=== PATIENT | female | born 1955 | race American Indian/Alaskan Native ===

== ENCOUNTER 2017-10-31 07:11 | Day surgery (SDC) | payer BC, OTHER ==
[~2017-10-31] VITALS: Ht 157.5 cm; Wt 87.5 kg
[~2017-10-31 07:11] MED LIST: ASPIR-LOW81 MG PO; CALCIUM 600 +1 EAC9 PO; FLECTOR1 EACH; FLOVENT DISKUS50 MCG INH; FORMOTEROL FUMAR MISC; GLIPIZIDE10 MG PO; ICY HOT PAIN70.8 GM TOP; JANUMET 50-1,01 EACH PO; LANTUS SOL100 UNIT/1; LANTUS SOL100 UNIT/1 SQ; LIPITOR10 MG PO; LISINOPRIL20 MG PO; MULTI VITAMIN1 EACH; NORCO 10-325 T1 EACH PO; OMEGA 3 1,0001 EACH; PROAIR RESPICL90 MCG IH; SIMVASTATIN20 MG
--- NOTE | 2017-10-31 08:49 | NUR ---
10/31/17 0849 Fátima Freire 0839 RESP EVEN AND UNLABORED, PT ASLEEP. 0842 PT WOKE UP, REORIENTED TO PACU. 0849 PT PASSING GAS/AIR.
--- NOTE | 2017-10-31 10:35 | NUR ---
PT VERY FRIENDLY, ALERT AND ORIENTED. ROUTINE SCOPE, SEEMED INFORMED AND DEALT WITH PREP DAY APPROPRIATELY. PT REQUESTED PRAYER, WILL FOLLOW NEEDED
--- NOTE | 2017-10-31 10:58 | OR ---
[facility] [address], [place] [address] Signed DATE OF OPERATION: 10/31/2017 SURGEON: Christine Sanchez MD PREOPERATIVE DIAGNOSIS: Screening. POSTOPERATIVE DIAGNOSIS: Unremarkable colonoscopy. PROCEDURE: Colonoscopy without biopsy. ESTIMATED BLOOD LOSS: None. INDICATIONS: Lavonne is a 62-year-old female, asked to see me for a followup screening colonoscopy. She had a negative colonoscopy back at age 52, while living in [place]. I have helped her whole family with colonoscopy, so they are familiar with the whole process. They are familiar with our bowel prep. She told me she has no lower GI complaints. There is no family history of colon cancer or polyps. She also understands the need for IV conscious sedation. She expressed understanding and wished to proceed. PROCEDURE NOTE: Lavonne was taken into our endoscopy suite and placed in the left lateral decubitus position. She was given IV sedation with 5 mg of Versed and 150 mcg of fentanyl. A digital rectal exam was performed and this was unremarkable. The adult colonoscope was introduced and advanced all around into the cecum under direct visualization of camera without difficulty. Her prep was quite good. The scope was then slowly withdrawn. We saw no pathology throughout the entire colon or rectum. Upon retroflexion of the scope, there was no additional pathology noted above the anal canal. After this, the gas was suctioned out and the colonoscope removed. Lavonne tolerated the procedure quite well. RECOMMENDATIONS: Lavonne can follow up in 10 years for repeat colonoscopy. Electronically Signed By: CHRISTINE SANCHEZ MD 10/31/17 1058 PATIENT NAME: LAVONNE SRIVASTAVA OPERATIVE REPORT DATE OF : 59 PHYSICIAN: CHRISTINE SANCHEZ MD REPORT #: [id number] REPORT IS CONFIDENTIAL AND NOT TO BE RELEASED WITHOUT AUTHORIZATION [address] [place], [place] [address] Signed Christine Sanchez MD ALB/MODL /[id number] cc: REJI Paul MD Electronically Signed By: CHRISTINE SANCHEZ MD 10/31/17 1058 PATIENT NAME: LAVONNE SRIVASTAVA OPERATIVE REPORT DATE OF : 59 PHYSICIAN: CHRISTINE SANCHEZ MD REPORT #: [id number] REPORT IS CONFIDENTIAL AND NOT TO BE RELEASED WITHOUT AUTHORIZATION
== END 2017-10-31 09:20 | disposition home or self-care (01) ==
LOC: DS 07:11 → OPS 07:11 → DS 08:15 → OPS 09:20
PROVIDERS: Colon & Rectal Surgery
PROC: 0DJD8ZZ Inspection of Lower Intestinal Tract, Via Natural or Artificial Opening Endoscopic (ICD-10-PCS; principal; 2017-10-31 08:15)
DX: Z12.11 Encounter for screening for malignant neoplasm of colon (principal); I10 Essential (primary) hypertension; J45.909 Unspecified asthma, uncomplicated; E78.5 Hyperlipidemia, unspecified; E55.9 Vitamin D deficiency, unspecified; E66.9 Obesity, unspecified; D69.6 Thrombocytopenia, unspecified; Z98.890 Other specified postprocedural states; Z90.49 Acquired absence of other specified parts of digestive tract; Z79.899 Other long term (current) drug therapy; Z79.82 Long term (current) use of aspirin; Z79.84 Long term (current) use of oral hypoglycemic drugs; Z68.35 Body mass index [BMI] 35.0-35.9, adult
CPT/HCPCS: 99153; G0500; J2250; J3010; J7120

== ENCOUNTER 2020-07-14 22:56 | Observation (INO) | payer BC, OTHER ==
[~2020-07-14] VITALS: Ht 157.5 cm; Wt 94.0 kg
[2020-07-14] MEDS ORDERED: NOVOLOG FL100 UNIT/1 SUB-Q (23:13)
--- NOTE | 2020-07-15 00:30 | NUR ---
REPORT RECIEVED FROM MARKETING COMMUNITY LIAISON, CARE OF PATIENT ASSUMED AT THIS TIME. PT TRANSPORTED VIA STRETCHER WITH FNP. PT ALERT AND ORIENTED UPON ARRIVAL. ABLE TO AMBULATE FROM STRETCHER TO BED WITHOUT ASSISTANCE. DENIES ANY DIZZINESS.
--- NOTE | 2020-07-15 00:59 | NUR ---
INITIAL ASSESSMENT COMPLETED AT THIS TIME. PT DENIES ANY NAUSEA OR ABDOMINAL PAIN. HEART RATE IN THE 110S. SPO=94 PERCENT ON ROOM AIR. LUNGS SOUND CLEAR IN ALL AIR DUGGAN. PLAN OF CARE FOR NIGHT ESTABLISHED. ALL QUESTIONS ANSWERED. NO FURTHER NEEDS AT THIS TIME.
--- NOTE | 2020-07-15 02:00 | NUR ---
pt sleeping. remains on night monitor. will continue to monitor.
--- NOTE | 2020-07-15 03:13 | NUR ---
PT AMBULATED TO BATHROOM. HEART RATE UP INTO THE 120'S. DENIES ANY DIZZINESS. BACK IN BED. WARM BLANKETS PROVIDED. NO FURTHER NEEDS AT THIS TIME.
--- NOTE | 2020-07-15 05:15 | NUR ---
lab in room to draw blood.
--- NOTE | 2020-07-15 07:50 | NUR ---
Call from [facility] and chart notes sent as requested.
[2020-07-15] MEDS ORDERED: METFORMIN HCL500 M1 PO (08:17)
[2020-07-15] MEDS ORDERED: PROAIR HFA8.5 GM INH (08:18)
[2020-07-15] MEDS ORDERED: LISINOPRIL10 MG PO (08:18)
[2020-07-15] MEDS ORDERED: OZEMPIC0.25 MG/0. SUB-Q (08:19)
--- NOTE | 2020-07-15 08:20 | NUR ---
PT AWAKE AND ALERT X4. STANDS AND MOVES TO CHAIR INDEPENDENTLY. PT DENIES PAIN, NAUSEA, AND SOB. PT REMAINS ON ROOM AIR. BOTH IV SITES ARE INTACT, NO REDNESS OR SWELLING NOTED, BOTH SITES FLUSH EASILY, PT DENIES PAIN AT EITHER SITE. PT ABLE TO BRUSH OWN TEETH WHEN GIVEN SUPPLIES. CALL LIGHT IS WITHIN REACH.
--- NOTE | 2020-07-15 12:17 | NUR ---
PT UP FROM CHAIR AND AMBULATES TO BATHROOM INDEPENDENTLY. MARYLOU ACTIVITY WELL PT REPORTS A MILD HEADACHE, STATES "SOMETIMES I GET A HEADACHE WHEN I HAVEN'T EATEN". PT DENIES NAUSEA AND SOB AT THIS TIME. HR REMAINS SINUS TACK, ALL OTHER VITALS ARE WNL. BOTH IV SITES ARE INTACT, NO REDNESS OR SWELLING NOTED, FLUIDS AND FLUSHES INFUSE EASILY. PT REPORTS GETTING SOME REST THIS MORNING. PT REMAINS ALERT AND ORIENTED X4, COOPERATIVE AND POLITE
--- NOTE | 2020-07-15 12:20 | NUR ---
PT SOUND ASLEEP IN CHAIR, DID NOT DISTURB. WILL FOLLOW NEEDED
--- NOTE | 2020-07-15 13:30 | NUR ---
AT ABOUT 1330 PT LEFT THE UNIT WITH AUTOMATION SPECIALIST FOR UPPER SCOPE IN SURGICAL DEPARTMENT.
[2020-07-15] MEDS ORDERED: FERROUS GLUCON324 M2 PO (13:41)
--- NOTE | 2020-07-15 14:07 | NUR ---
PT RECIEVED FROM DEADENER, FULL REPORT GIVEN. PT IS DROWSY, WAKES EASILY AND THEN IS APPROPRIATE. PT DENIES PAIN, NAUSEA, AND SOB. VITALS ARE STABLE, IV SITES ARE INTACT, PT CURRENTLY SALINE LOCKED.
--- NOTE | 2020-07-15 14:37 | NUR ---
07/15/20 1437 Sheets,Fátima 1401 PT TRANSFERED TO CCU AND MOVED TO BED WITH FOUR RN AT BEDSIDE. PT WOKE AND BITE GUARD REMOVED. PT REORIENTED TO CCU. REPORT GIVEN FROM BLACK TOP ROLLER TO CCU RN WITH BURR MACHINE OPERATOR AT BEDSIDE. VSS. ALL QUESTIONS ANSWERED.
--- NOTE | 2020-07-15 14:51 | NUR ---
SANDOSTATIN BOLUS OF 50 MCG GIVEN IV OVER 3 MINUTES, THEN SANDOSTATIN DRIP STARTED AT 50 MCG/HR.
--- NOTE | 2020-07-15 15:30 | NUR ---
20 G IV SITE STARTED BY ESTRELLA FELIX IN LEFT WRIST.
--- NOTE | 2020-07-15 15:32 | NUR ---
ALL TRANSPORT ARRANGEMENTS MADE WITH [employer]. [facility] CALLED BACK AND DECLINED DUE TO WEATHER. CLOSEST FIXED WING IS OVER [address] FARLEY AGREES TO SEND PT BY GROUND, CODE 3 WHICH WILL BE FASTER.
--- NOTE | 2020-07-15 15:40 | NUR ---
Spoke with Alesia. 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 Lives with her spouse and two sons. Feeling better and wanting to go home, but states she needs to have a scope. She is waiting to see Dr. Guillaume. Denies needs for dc as she states adult sons and spouse will help her. She drives. No financial issues.
--- NOTE | 2020-07-15 15:40 | NUR ---
PT ABLE TO VOID USING BEDPAN, MARYLOU WELL. VOID GREATER THEN 250 ML.
--- NOTE | 2020-07-15 15:50 | NUR ---
PT LEFT THE UNIT WITH [facility] AND [facility] TRANSPORT CREW. PT ALERT AND ORIENTED X4, COOPERATIVE. ALL PERSONAL BELONGINGS WENT WITH PT. ALL PT QUESTIONS ANSWERED, PT IS AGREABLE TO THIS PLAN OF CARE.
--- NOTE | 2020-07-15 16:25 | NUR ---
FULL REPORT GIVEN TO ELVIRA PARIKH AT [facility], ALL QUESTIONS ANSWERED.
--- NOTE | 2020-07-15 23:15 | PATH ---
[facility] [address] [place], [place] [address] Signed ORDERING PHYSICIAN: Celeste Barrett MD PATIENT NAME: LAVONNE SRIVASTAVA GENDER: F : 1955 Prior History: No cases found. SPECIMEN(S): No Source Given MOLECULAR PATHOLOGY RESULTS: SARS-CoV-2 Not Detected ADDITIONAL NOTES.: The [employer] Fusion SARS-CoV-2 Assay is a multiplex real-time PCR (RT-PCR) in vitro diagnostic test intended for the qualitative detection of RNA from SARS-CoV-2 from individuals who meet COVID-19 clinical and/or epidemiological criteria. In general, SARS-CoV-2 RNA can be detected during the acute phase of infection. Positive results indicate the presence of SARS-CoV-2 RNA. Clinical correlation with patient history and other diagnostic information is necessary to determine patient infection status. Positive results do not rule out bacterial infection or co-infection with other viruses. Negative results do not preclude SARS-CoV-2 infection and should not be used as the sole basis for patient management decisions. Negative results must be combined with other clinical observations, patient history, and epidemiological information. The [place] Fusion SARS-CoV-2 Assay is not yet approved or cleared by the [place] FDA. When there are no FDA-approved or cleared tests available, and other criteria are met, FDA can make tests available under an emergency access mechanism called an Emergency Use Authorization (EUA). The EUA for this test is supported by the Account Processor of Health and Human Service's (HHS's) declaration that circumstances exist to justify the emergency use of in vitro diagnostics for the detection and/or diagnosis of the virus that causes COVID-19. This EUA will remain in effect for the duration of the COVID-19 declaration justifying emergency of IVDs, unless it is terminated or revoked by FDA, after which the test may no longer be used. The [place] Fusion SARS-CoV-2 Assay is for use only under EUA PATIENT NAME: LAVONNE SRIVASTAVA PATHOLOGY DATE OF : 59 REPORT #: [id number] PHYSICIAN: VEE DONATO PCP: ZHANE ROBLES MD REPORT IS CONFIDENTIAL AND NOT TO BE RELEASED WITHOUT AUTHORIZATION [facility] [address] [place], [place] [address] Signed in laboratories certified under the Clinical Laboratory Improvement Amendments of 1988 (CLIA) to perform high complexity tests. [facility] is certified under CLIA to perform high complexity clinical laboratory testing. PERFORMING LABORATORY.: Molecular testing was performed by [facility] [id number] [place], [place] [address] [address] (General Intern: Heath Garcias D.O.; CLIA#: [id number]) Diagnostician: System Interface Pathologist Electronically Signed 07/15/2020 Copies: ~ PATIENT NAME: LAVONNE SRIVASTAVA PATHOLOGY DATE OF : 59 REPORT #: [id number] PHYSICIAN: VEE DONATO PCP: ZHANE ROBLES MD REPORT IS CONFIDENTIAL AND NOT TO BE RELEASED WITHOUT AUTHORIZATION
--- NOTE | 2020-07-18 15:17 | OR ---
[facility] [address] [place], [place] [address] Signed DATE OF OPERATION: 07/15/2020 SURGEON: Silvia Lovett MD PREOPERATIVE DIAGNOSES: 1. Hematemesis and melena, hemodynamically stable. 2. Cryptogenic cirrhosis with probable portal hypertension. POSTOPERATIVE DIAGNOSIS: Esophageal varices with stigmata of recent bleeding; no active bleeding. PROCEDURE: Esophagogastroduodenoscopy. ANESTHESIA: Intravenous sedation, propofol infusion; Ryan Metzger CRNA INDICATIONS: This morbidly obese 65-year-old Stateless woman has cryptogenic cirrhosis; no prior history of IV drug use or hepatitis or other typical etiologies of liver disease. She has had five days of melena at home, presented to the emergency room yesterday with hematemesis, was admitted by Dr. Orozco. She had at least one witnessed episode of hematemesis in the hospital. Her hematocrit is currently 25, platelets are 70,000, previously 110,000. She is hemodynamically stable. A prompt upper endoscopy has been requested by Dr. Orozco to better characterize the problem. She is not known to have peptic disease in the past. She understands the risks of bleeding, infection, and perforation related to upper endoscopy and wished to proceed. FINDINGS: She was hemodynamically stable throughout the procedure. Good visualization of the upper gastrointestinal tract was accomplished. The only findings of note were significant grade IV esophageal varices in the distal esophagus. There was an area suggestive of recent bleeding with an apparent fibrin clot on one of the varices. There is certainly no sign of active bleeding, no sign of blood within the stomach. The stomach and duodenum were otherwise normal. DESCRIPTION OF PROCEDURE: The patient was brought to the endoscopy suite and placed in lateral decubitus position, given intravenous sedation with propofol infusional sedation by the hospice aide with full cardiopulmonary monitoring. A bite block was placed. An Olympus video upper Electronically Signed By: SILVIA LOVETT MD 07/18/20 1517 PATIENT NAME: LAVONNE SRIVASTAVA OPERATIVE REPORT DATE OF : 59 REPORT #: [id number] PHYSICIAN: SILVIA LOVETT MD PCP: ZHANE ROBLES MD REPORT IS CONFIDENTIAL AND NOT TO BE RELEASED WITHOUT AUTHORIZATION [facility] [address] [place], [place] [address] Signed endoscope was passed into the hypopharynx. The vocal cords appeared normal. Scope was advanced to the esophagus. The distal one-third of the esophagus were extensive esophageal varices, which would be considered grade IV. There was no sign of active blood or bleeding. The scope was passed into the stomach, which was insufflated with air. Rugal folds appeared normal. There was no sign of blood or clot within the stomach. The scope was passed through the pylorus into the duodenum, which was normal. Scope was withdrawn and retroflexed view undertaken showing reasonably good flap valve. No sign of gastric varices. The scope was straightened and reoriented and withdrawn to the distal esophagus, where varices were once again noted. There was a white fibrinous adherent site to one of the varices likely site of previous bleeding. There was no active bleeding, however. The scope was carefully withdrawn and the more proximal two-third of the esophagus was free of esophageal varices as far as could be seen. The scope was removed. The patient was taken to the recovery room in good condition. CONCLUDING DIAGNOSES: Most likely her melena and hematemesis related to esophageal bleeding from varices, which is no longer clinically active. Short-term interventions might include beta amber (propranolol) as well as octreotide to diminish the splanchnic blood flow and diminish chance of rebleeding. Varicocele banding or sclerotherapy would be a consideration, though not locally available here. We will review this with Dr. Orozco further. MD RUDDY Vogt/MODL /[id number] cc: MD Zhane Fonseca MD Copies: CANDY OROZCO DO Electronically Signed By: SILVIA LOVETT MD 07/18/20 1517 PATIENT NAME: LAVONNE SRIVASTAVA OPERATIVE REPORT DATE OF : 59 REPORT #: [id number] PHYSICIAN: SILVIA LOVETT MD PCP: ZHANE ROBLES MD REPORT IS CONFIDENTIAL AND NOT TO BE RELEASED WITHOUT AUTHORIZATION [facility] [address] [place] [address] [place], [place] [address] Signed ZHANE ROBLES MD ~ Electronically Signed By: SILVIA LOVETT MD 07/18/20 1517 PATIENT NAME: ATIFLAVONNE Camelia OPERATIVE REPORT DATE OF : 59 REPORT #: [id number] PHYSICIAN: SILVIA LOVETT MD PCP: ZHANE ROBLES MD REPORT IS CONFIDENTIAL AND NOT TO BE RELEASED WITHOUT AUTHORIZATION
--- NOTE | 2020-07-18 15:17 | CONS ---
[facility] [address] [place], [place] [address] Signed DATE OF CONSULTATION: 07/15/2020 REQUESTING PHYSICIAN: Dr. Orozco. PROBLEM: Hematemesis and melena and probable cryptogenic cirrhosis. HISTORY OF PRESENT ILLNESS: This obese (BMI 37.9) 65-year-old woman, who was admitted to the hospital yesterday under the direction of Dr. Orozco with a history as noted by the emergency room physician Dr. Barrett of having nausea and hematemesis. She has noted daily episodes of black tarry stool for the preceding 5 days. She had no abdominal pain or other abnormalities. She tells me that a year ago, she underwent colonoscopy by Dr. Herrera in [place], which was said to be normal. She did not undergo upper endoscopy that she recalls. She has no prior history of GI bleeding. The patient is noted to have cirrhosis of the liver and does have thrombocytopenia, likely related to that. The patient has never had IV drug use nor alcohol abuse and likely her cirrhosis of the liver is cryptogenic in origin (probably fatty infiltration of liver etiology). Other medical issues include hypertension and diabetes. MEDICATIONS: At admission included insulin, albuterol, lisinopril, atorvastatin as well as multivitamin and fish oil tablets. She does not take aspirin. SOCIAL HISTORY: The patient does work in the [employer] department for [employer]. Her works at the [employer]. They live in the [place] area. REVIEW OF SYSTEMS: She denies any chest pain or shortness of breath. She had no abdominal pain per se. She had no dysuria. PHYSICAL EXAMINATION: GENERAL: This is an obese woman, who looks alert and oriented and not physiologically distressed at this time. VITAL SIGNS: Show a temperature of 98, pulse of 114, previously 108, respirations 24, blood pressure 121/51, O2 saturation 100% on room air. NECK: Plethoric, but without palpable mass. CHEST: Clear. Electronically Signed By: SILVIA LOVETT MD 07/18/20 1517 PATIENT NAME: LAVONNE SRIVASTAVA CONSULTATION DATE OF : 59 REPORT #: [id number] PHYSICIAN: SILVIA LOVETT MD PCP: ZHANE ROBLES MD REPORT IS CONFIDENTIAL AND NOT TO BE RELEASED WITHOUT AUTHORIZATION [facility] [address] [place], [place] [address] Signed HEART: Regular without murmur. ABDOMEN: Quite obese, but soft. There is no ascites. There is no tenderness. No mass. EXTREMITIES: Show no clubbing, cyanosis, or edema. She has a transverse incision over the inferior aspect of the right knee. LABORATORY DATA: At admission showed white count of 6.9, now 4.6, hematocrit initially 31.6, now 25. Initial platelet count 110,000, now 88,000. Coag studies show an INR of 1.0. Chem profile shows creatinine of 0.63, glucose 364 at admission, currently 260. Albumin is 3.7. ASSESSMENT: The patient has what sounds like upper gastrointestinal bleeding manifested by hematemesis and black tarry stools for the past few days. Her hematocrit is low, but not profoundly so and she does not look hemodynamically unstable. Upper endoscopy has been requested rather by Dr. Orozco to better define etiology of the problem. She does have relative thrombocytopenia, likely related to portal hypertension and splenomegaly. She does not have the typical appearance of variceal bleeding, however. I would concur that upper endoscopy be performed to better characterize her problem. The risks of bleeding, infection, perforation, and so forth were reviewed with her in detail. She understands and wished to proceed. We will plan to do this promptly as requested by Dr. Orozco. MD RUDDY Vogt/ANGELL /[id number] cc: MD Celeste Fonseca MD James Winde, MD Electronically Signed By: SILVIA LOVETT MD 07/18/20 1517 PATIENT NAME: LAVONNE SIRVASTAVA CONSULTATION DATE OF : 59 REPORT #: [id number] PHYSICIAN: SILVIA LOVETT MD PCP: ZHANE ROBLES MD REPORT IS CONFIDENTIAL AND NOT TO BE RELEASED WITHOUT AUTHORIZATION [facility] [address] [place] [address] Signed Copies: CANDY OROZCO KELLY DEAN MD WINDE, JAMES MD ~ Electronically Signed By: SILVIA LOVETT MD 07/18/20 1517 PATIENT NAME: LAVONNE SRIVASTAVA CONSULTATION DATE OF : 59 REPORT #: [id number] PHYSICIAN: SILVIA LOVETT MD PCP: ZHANE ROBLES MD REPORT IS CONFIDENTIAL AND NOT TO BE RELEASED WITHOUT AUTHORIZATION
== END 2020-07-15 16:00 | disposition short-term general hospital (02) ==
LOC: ED 22:56 → CCU 22:57 → ED 07-15 00:18 → CCU 07-15 00:18
PROVIDERS: Surgery; ADMIT Student in an Organized Health Care Education/Training Program; ATTEND Student in an Organized Health Care Education/Training Program
PROC: 0DJ08ZZ Inspection of Upper Intestinal Tract, Via Natural or Artificial Opening Endoscopic (ICD-10-PCS; principal; 2020-07-15 14:00)
DX: K74.60 Unspecified cirrhosis of liver (principal); I85.11 Secondary esophageal varices with bleeding; K76.0 Fatty (change of) liver, not elsewhere classified; I10 Essential (primary) hypertension; E11.9 Type 2 diabetes mellitus without complications; D62 Acute posthemorrhagic anemia; Z20.828 Contact with and (suspected) exposure to other viral communicable diseases; E66.9 Obesity, unspecified; Z68.35 Body mass index [BMI] 35.0-35.9, adult; Z79.4 Long term (current) use of insulin; Z79.899 Other long term (current) drug therapy; D69.59 Other secondary thrombocytopenia
CPT/HCPCS: 36415; 80053; 85025; 85610; 85730; 86850; 86900; 86901; 86920; 96374; 96375; 96376; 99285-25; C9113; C9803; G0378; J0696; J1815; J2001; J2354; J2405; J2704; J3010; J7030; J7050; J7121

== ENCOUNTER 2022-01-16 15:13 | Emergency (ER) | payer BC, OTHER ==
[~2022-01-16] VITALS: Ht 157.5 cm; Wt 93.9 kg
[~2022-01-16 15:13] MED LIST changes: +FERROUS GLUCON324 M2 PO; +LISINOPRIL10 MG PO; +METFORMIN HCL500 M1 PO; +NOVOLOG FL100 UNIT/1 SUB-Q; +OZEMPIC0.25 MG/0. SUB-Q; +PROAIR HFA8.5 GM INH
[2022-01-16] MEDS ORDERED: LO-DOSE ASPIRIN81 MG PO (15:38)
[2022-01-16] MEDS ORDERED: MAGNESIUM30 MG PO (15:38)
[2022-01-16] MEDS ORDERED: ZINC10 MG PO (15:39)
--- NOTE | 2022-01-16 21:10 | EKG ---
[facility] [address] [facility] [place] [address] Signed Normal sinus rhythm Right bundle branch block Left anterior fascicular block Bifascicular block Abnormal ECG When compared with ECG of 29-JUN-2016 10:07, No significant change was found Confirmed by KATIA GARDINER MD ([id number]) on 01/16/2022 9:10:45 PM Electronically Signed By: KATIA GARDINER MD 01/16/222109 PATIENT NAME: LAVONNE SRIVASTAVA Camelia Electrocardiogram DATE OF : 59 PHYSICIAN: KATIA GARDINER MD REPORT #: [id number] REPORT IS CONFIDENTIAL AND NOT TO BE RELEASED WITHOUT AUTHORIZATION
== END 2022-01-16 16:25 | disposition home or self-care (01) ==
LOC: ED 15:13
DX: R07.9 Chest pain, unspecified (principal); M54.12 Radiculopathy, cervical region; I10 Essential (primary) hypertension; E11.9 Type 2 diabetes mellitus without complications; Z79.899 Other long term (current) drug therapy; Z79.4 Long term (current) use of insulin; Z79.84 Long term (current) use of oral hypoglycemic drugs
CPT/HCPCS: 36415; 71045; 80053; 83735; 84484; 85025; 93005; 93010; 99285-25